=== PATIENT | female | born 1955 | race Caucasian/White ===

== ENCOUNTER 2017-02-19 16:23 | Emergency (ER) | payer MEDICAID ==
[2017-02-19 16:23] VITALS: BMI 25.4
[2017-02-19 16:36] VITALS: BP 126/94; PULSE 73; RESP 16; TEMP 98.3; O2SAT 99
--- NOTE | 2017-02-19 17:10 | ED PDOC ---
HPI: Back Time Seen by Provider: 02/19/17 16:53 Chief Complaint (Nursing): Back Pain Chief Complaint (Provider): Back Pain History Per: Patient History/Exam Limitations: no limitations Current Symptoms Are (Timing): Still Present Additional Complaint(s): 61 y/o female presents to the emergency department with diffuse back pain that radiates to the abdomen bilaterally and worsens with deep breath. Associated with bilaterally knee pain. Reports she visited her doctor who said this pain could be musculoskeletal and was prescribed Titizanidine HCl (muscle relaxer) although it does not help with pain. States she has been going to therapy without resolution of symptoms. Denies pain with urination or the presence of blood. Past Medical History Reviewed: Historical Data, Nursing Documentation, Vital Signs Vital Signs: Last Vital Signs Temp 98.3 F 02/19/17 16:32 Pulse 73 02/19/17 16:32 Resp 16 02/19/17 16:32 BP 126/94 H 02/19/17 16:32 Pulse Ox 99 02/19/17 16:32 - Medical History PMH: HTN, Hypercholesterolemia Denies: Chronic Kidney Disease - Surgical History Surgical History: No Surg Hx - Family History Family History: States: No Known Family Hx - Immunization History Hx Tetanus Toxoid Vaccination: No Hx Influenza Vaccination: No Hx Pneumococcal Vaccination: Yes - Home Medications Home Medications: Ambulatory Orders Medication Instructions Recorded Atorvastatin [Lipitor] 1 tab PO DAILY 06/11/16 Pantoprazole [Protonix EC Tab] 40 mg PO DAILY 06/11/16 Valacyclovir HCl [Valacyclovir] 1 tab PO DAILY 06/11/16 Losartan-Hctz 160-25 1 tab PO DAILY 08/24/16 Ibuprofen [Motrin] 600 mg PO Q6 #20 tab 02/19/17 - Allergies Allergies/Adverse Reactions: Allergies Allergy/AdvReac Type Severity Reaction Status Date / Time No Known Allergies Allergy Verified 06/11/16 10:07 Review of Systems ROS Statement: Except As Marked, All Systems Reviewed And Found Negative Gastrointestinal: Positive for: Abdominal Pain Genitourinary Female: Negative for: Dysuria, Hematuria Musculoskeletal: Positive for: Back Pain (diffuse along the middle), Other ( Knee pain b/l) Physical Exam - Reviewed Nursing Documentation Reviewed: Yes Vital Signs Reviewed: Yes - Physical Exam Appears: Positive for: Non-toxic, No Acute Distress Head Exam: Positive for: ATRAUMATIC, NORMAL INSPECTION, NORMOCEPHALIC Skin: Positive for: Normal Color, Warm, Dry Neck: Positive for: Normal, Supple Extremity: Positive for: Normal ROM. Negative for: Pedal Edema, Deformity, Swelling Neurologic/Psych: Positive for: Alert, Oriented (x3) - ECG O2 Sat by Pulse Oximetry: 99 (RA) Pulse Ox Interpretation: Normal Medical Decision Making Medical Decision Making: Time: 16:53 Initial impression: Musculoskeletal pain Initial plan: --Chest x-ray --Knee x-ray BL --Motrin 600 mg --Reevaluation XR: Bakers cyst noted b/l to knees, NAD, as read by LUIS CXR: NAD Pt educated on results and demonstrated full understanding Pt doing well on re-eval, no complaints of pain. stable for discharge Scribe Attestation: Documented by Aparna Bower, acting as a scribe for Emi Bowman PA-C Provider Scribe Attestation: All medical record entries made by the Scribe were at my direction and personally dictated by me. I have reviewed the chart and agree that the record accurately reflects my personal performance of the history, physical exam, medical decision making, and the department course for this patient. I have also personally directed, reviewed, and agree with the discharge instructions and disposition. Disposition - Clinical Impression Clinical Impression: Knee pain, Back pain - Patient ED Disposition Is Patient to be Admitted: No - Disposition Disposition: Routine/Home Disposition Time: 19:19 Condition: STABLE Prescriptions: Ibuprofen [Motrin] 600 mg PO Q6 #20 tab Instructions: Knee Pain (ED), Acute Low Back Pain (ED) Forms: [employer] ([place]i)
--- NOTE | 2017-02-20 08:48 | RAD ---
HISTORY: pain, upper back COMPARISON: Comparison is made to 10/17/2014 TECHNIQUE: Chest PA and lateral FINDINGS: LUNGS: No active pulmonary disease. PLEURA: No significant pleural effusion identified. No pneumothorax apparent. CARDIOVASCULAR: Normal. OSSEOUS STRUCTURES: No significant abnormalities. VISUALIZED UPPER ABDOMEN: Normal. OTHER FINDINGS: None. IMPRESSION: No active disease.
--- NOTE | 2017-02-20 08:58 | RAD ---
PROCEDURE: Bilateral Knee Radiographs. HISTORY: pain COMPARISON: None. FINDINGS: BONES: Right Knee: Normal. No fracture. Left Knee: Normal. No fracture. JOINTS: Right Knee: Mild osteoarthritic changes. Left knee: Mild osteoarthritic changes. SOFT TISSUES: Right Knee: Normal. Left Knee: Normal. JOINT EFFUSION: Right Knee: None. Left Knee: None. OTHER FINDINGS: None. IMPRESSION: No evidence of acute fracture or dislocation. Mild osteoarthritic changes
== END 2017-02-19 20:05 | disposition home or self-care (01) ==
LOC: H.ER 16:23
DX: M54.5 Low back pain (principal); M25.569 Pain in unspecified knee; E78.00 Pure hypercholesterolemia, unspecified; I10 Essential (primary) hypertension